=== PATIENT | female | born 1955 | race Caucasian/White ===

== ENCOUNTER → 2016-05-18 | Outpatient (CLI) | payer OTHER ==
--- NOTE | 2016-05-18 10:11 | DX ---
Chest, PA and Lateral Views May 18, 2016 9:43 a.m. Clinical History: 60-year-old female who has had a cough for 2 weeks with bronchitis. ICD-10 Diagnostic Code: J40. Comparison Study: Chest, dated July 18, 2015. Findings: The cardiac silhouette size is within normal limits. There is no focal infiltrate, atelecta sis, pleural effusion, peripheral interstitial edema, or pneumothorax. There is mild central perihila r bronchial wall thickening, and a mild mid thoracic dextroscoliosis and moderate pectus excavatum de formity. The trachea is midline. There is an old mild ventral wedging deformity at a lower thoracic l evel. Impression: Mild perihilar bronchitis, without a focal infiltrate.
== END ==
LOC: BRMIMAGING 09:34
PROVIDERS: ATTEND Physician Assistant Medical
DX: R05 Cough (principal)
CPT/HCPCS: 71020-PO

== ENCOUNTER → 2016-07-31 | Outpatient (CLI) | payer OTHER | LOC: BRMIMAGING 14:31 | PROVIDERS: ATTEND Physician Assistant Medical | DX: Z12.31 Encounter for screening mammogram for malignant neoplasm of breast (principal) | CPT/HCPCS: G0202 ==

== ENCOUNTER → 2016-08-13 | Outpatient (CLI) | payer OTHER | LOC: BRMIMAGING 09:21 | PROVIDERS: ATTEND Physician Assistant Medical | DX: R92.8 Other abnormal and inconclusive findings on diagnostic imaging of breast (principal); Z79.890 Hormone replacement therapy | CPT/HCPCS: 76641-PO; G0206 ==